=== PATIENT | male | born 1960 | race Caucasian/White ===

== ENCOUNTER → 2023-03-22 08:50 | Outpatient (BNVA) | payer OTHER, SELFPAY | PROVIDERS: PCP Family Medicine; Visit Provider Family Medicine | DX: E03.9 Hypothyroidism, unspecified (principal); G47.00 Insomnia, unspecified; E04.1 Nontoxic single thyroid nodule | CPT/HCPCS: 80053; 80061; 82306; 82607; 84439; 84443; 84481; 85025; G0103 ==